=== PATIENT | female | born 1950 | race Caucasian/White ===

== ENCOUNTER → 2017-02-23 | Outpatient (CLI) | payer MEDICARE ==
[2016-02-27 09:11] VITALS: BP 157/86
[~2017-02-23] MED LIST: ASPI-630 PO; DICL100G18 TP; IBUP1CAP12 PO; INSU100I13 SQ; INSU100V8 SQ; LISI10TA2 PO; LISI40TA PO; MELO7.5T29 PO; NAPR500T3 PO; PROP40TA PO; ZOLP10TA PO
[2017-02-23 15:09] LABS: CREATININE 1.2 mg/dL (0.6-1.0); GFR 44.7
== END | disposition home or self-care (01) ==
LOC: LAB 14:30
PROVIDERS: ATTEND Psychiatry & Neurology Neurology
DX: G25.0 Essential tremor (principal)
CPT/HCPCS: 36415; 82565; 82607; 84443; 84450; 84460; 84520

== ENCOUNTER → 2017-02-28 | Outpatient (CLI) | payer MEDICARE ==
[2016-02-27 09:11] VITALS: BP 157/86
--- NOTE | 2017-03-07 15:40 | EEG ---
DATE OF SERVICE: 02/28/2017 DATE OF SERVICE: 02/28/2017 EEG NUMBER: [id number] OBJECTIVE: This is a 66-year-old female patient with history of abnormal movements in hands. EEG was requested to help rule out seizure. METHOD: Twenty electrodes were applied according to the international 10-20 electrode placement system. EKG monitoring, hyperventilation, intermittent photic stimulation, monopolar and bipolar montages are routinely utilized. The record was obtained on a digital system with video monitoring. FINDINGS: 1. Background: The patient was recorded in the awake and drowsy states. No actual sleep state was recorded. The overall background amplitude is 10-30 microvolts. A posterior dominant rhythm of 8-10 Hz is observed. 2. Abnormalities: No specific epileptiform discharge or electrographic seizure is seen. No focal or diffuse slowing. 3. Activation: Hyperventilation was performed with good efforts and normal response. Intermittent photic stimulation was performed with photic driving. No specific epileptiform discharge or electrographic seizure induced by hyperventilation or intermittent photic stimulation. IMPRESSION: This EEG is a normal study for the awake and drowsy states. No sleep state was recorded. No focal, lateralizing, specific epileptiform discharge or electrographic seizure is seen. However, a normal EEG does not rule out seizure. TOYIN BRYSON MD DR: FELICE/[email or web address] JOB#: [id number] / [id number] VANE
== END | disposition home or self-care (01) ==
LOC: RT 08:44
PROVIDERS: ATTEND Psychiatry & Neurology Neurology
DX: G25.2 Other specified forms of tremor (principal); R06.4 Hyperventilation
CPT/HCPCS: 95816

== ENCOUNTER 2017-11-13 11:44 | Emergency (ER) | payer MEDICARE ==
[2017-11-13] MEDS: CYCLOBENZAPRINE 10 MG TABLET. PO (12:37)
[2017-11-13] MEDS: HYDROcodone/APAP 5/325MG 1 TAB TABLET PO ×2 (12:38→16:41)
[2017-11-13 12:39] LABS: ADD MAN DIFF? NO
[2017-11-13 12:57] LABS: BASO % 0 % (0-3); EOS # 0.1 x10^3/uL (0.0-0.7); EOS % 1 % (0-3); HEMATOCRIT 41.7 % (36.0-47.0); HEMOGLOBIN 14.1 g/dL (12.0-15.5); LYMPH # 2.3 x10^3/uL (1.0-4.8); LYMPH % 20 % (24-48); MEAN CORPUSCULAR HEMOGLOBIN 30 pg (25-35); MEAN CORPUSCULAR HGB CONC 34 g/dL (31-37); MEAN CORPUSCULAR VOLUME 90 fL (79-100); MONO # 0.9 x10^3/uL (0.0-1.1); MONO % 8 % (0-9); NEUT # 8.4 x10^3uL (1.8-7.7); NEUT % 71 % (31-73); PLATELET COUNT 285 x10^3/uL (140-400); RED BLOOD COUNT 4.62 x10^6/uL (3.50-5.40); RED CELL DISTRIBUTION WIDTH 13.8 % (11.5-14.5); WHITE BLOOD COUNT 11.8 x10^3/uL (4.0-11.0)
[2017-11-13 12:58] LABS: ANION GAP 10 (6-14); BLOOD UREA NITROGEN 16 mg/dL (7-20); BUN/CREATININE RATIO 15 (6-20); CARBON DIOXIDE 28 mmol/L (21-32); CHLORIDE 103 mmol/L (98-107); CREATININE 1.1 mg/dL (0.6-1.0); GFR 49.2; GLUCOSE 155 mg/dL (70-99); POTASSIUM 4.5 mmol/L (3.5-5.1); SODIUM 141 mmol/L (136-145)
[2017-11-13 13:08] LABS: TROPONINI < 0.017 ng/mL (0.000-0.055)
[2017-11-13 13:09] LABS: ALBUMIN 3.4 g/dL (3.4-5.0); ALBUMIN/GLOBULIN RATIO 0.8 (1.0-1.7); ALK PHOS 112 U/L (46-116); ALT (SGPT) 21 U/L (14-59); AST (SGOT) 17 U/L (15-37); TOTAL BILIRUBIN 0.7 mg/dL (0.2-1.0); TOTAL PROTEIN 7.9 g/dL (6.4-8.2)
[2017-11-13 13:11] LABS: CKMB MASS < 0.5 ng/mL (0.0-3.6); CREATINE KINASE 39 U/L (26-192)
[2017-11-13] MEDS ORDERED: CONTRAST GIVEN MC (13:30)
[2017-11-13 13:32] LABS: PARTIAL THROMBOPLASTIN TIME 30 SEC (24-38); PROTHROMBIN TIME PATIENT 12.3 SEC (11.7-14.0)
[2017-11-13 14:09] LABS: BILIRUBIN,URINE SMALL (NEG); COLOR,URINE YELLOW; GLUCOSE,URINE NEGATIVE (NEG); NITRITE,URINE NEGATIVE (NEG); PROTEIN,URINE NEGATIVE (NEG-TRACE); UROBILINOGEN,URINE 0.2 mg/dL (0.2 mg/dL)
[2017-11-13] MEDS: IOHEXOL 300 MG/ML 100ML VIAL. IV (14:15)
[2017-11-13 14:21] LABS: CLARITY,URINE HAZY
[2017-11-13 14:23] LABS: BACTERIA,URINE FEW /HPF (0-FEW); RBC,URINE 0 /HPF (0-2); SQUAMOUS EPITHELIAL CELL,UR MANY /LPF
[2017-11-13] MEDS: IV NORMAL SALINE 1000ML BAG 1,000 ML IV (14:54)
== END 2017-11-13 16:44 | disposition home or self-care (01) ==
LOC: ER 16:44
DX: S16.1XXA Strain of muscle, fascia and tendon at neck level, initial encounter (principal); I11.9 Hypertensive heart disease without heart failure; E78.00 Pure hypercholesterolemia, unspecified; E11.9 Type 2 diabetes mellitus without complications; X50.9XXA Other and unspecified overexertion or strenuous movements or postures, initial encounter; Y93.89 Activity, other specified; Y99.8 Other external cause status; Y92.89 Other specified places as the place of occurrence of the external cause
CPT/HCPCS: 36415; 70498; 80053; 81001; 82553; 84484; 85025; 85610; 85730; 93005; 99285-25; J7030; Q9967